=== PATIENT | male | born 1975 | race Caucasian/White ===

== ENCOUNTER 2019-07-14 09:38 | Emergency (ER) | payer SELFPAY ==
--- NOTE | 2019-07-14 10:06 | EDM.PDOC ---
ED HPI GENERAL MEDICAL PROBLEM - General Chief Complaint: Chest Pain Stated Complaint: sob tightness in chest Time Seen by Provider: 07/14/19 09:45 Source of Information: Reports: Patient History Limitations: Reports: No Limitations - History of Present Illness INITIAL COMMENTS - FREE TEXT/NARRATIVE: 43-year-old male who has had left-sided chest discomfort radiating into his shoulder and arm with intermittent palpitations and cough over the past 2 days. He had a very similar episode a year ago. This morning he felt like his heart was beating funny, and he was getting short of breath with activity so came in to be seen. He has now asymptomatic other than an occasional cough and increased pain with deep breath over the left anterior chest. No fevers or chills, no productive cough. He is a smoker. Onset: Gradual Duration: Day(s): (Over the past 2-3 days) Worsens with: Reports: Other (Activity seems to cause more shortness of breath and dizziness) Associated Symptoms: Reports: Chest Pain, Cough, Shortness of Breath, Other ( Dizziness, lightheaded). Denies: Confusion - Related Data Allergies Allergy/AdvReac Type Severity Reaction Status Date / Time No Known Allergies Allergy Verified 07/14/19 09:41 Home Meds: Home Meds NK [No Known Home Meds] 07/14/19 [History] Past Medical History Cardiovascular History: Reports: Other (See Below) Other Cardiovascular History: torn aotra in 2 places Musculoskeletal History: Reports: Fracture - Past Surgical History Other GI Surgeries/Procedures: Ruptruted slpeen and diaphram. Social & Family History - Tobacco Use Smoking Status *Q: Heavy Tobacco Smoker Years of Tobacco use: 30 Packs/Tins Daily: 1 - Caffeine Use Caffeine Use: Reports: Coffee - Recreational Drug Use Recreational Drug Use: Yes Recreational Drug Type: Reports: Marijuana/Hashish ED ROS GENERAL - Review of Systems Review Of Systems: See Below Constitutional: Reports: Malaise. Denies: Fever, Chills HEENT: Denies: Throat Pain Respiratory: Reports: Shortness of Breath, Cough. Denies: Sputum Cardiovascular: Reports: Chest Pain (Left anterior chest discomfort with coughing and deep breath) GI/Abdominal: Reports: Other (Over the past several months has been somewhat concerned about his change in bowel habits and formed stool.) : Reports: No Symptoms Skin: Reports: No Symptoms Neurological: Reports: Dizziness. Denies: Headache Psychiatric: Reports: No Symptoms ED EXAM, GENERAL - Physical Exam Exam: See Below Exam Limited By: No Limitations General Appearance: Alert, No Apparent Distress Eye Exam: Bilateral Eye: Normal Inspection Respiratory/Chest: No Respiratory Distress, Other (Patient does have a few scattered rhonchi and expiratory wheezes bilaterally) Cardiovascular: Regular Rate, Rhythm. No: Extra Beats GI/Abdominal: Soft, Non-Tender Extremities: Normal Inspection Neurological: Alert, Oriented Psychiatric: Normal Affect, Normal Mood Skin Exam: Warm, Dry EKG INTERPRETATION EKG Date: 07/14/19 Rhythm: NSR Rate (Beats/Min): 64 Hunt: Normal Course - Vital Signs Last Recorded V/S: Last Vital Signs Temp 97.1 F 07/14/19 09:43 Pulse 76 07/14/19 09:43 Resp 12 07/14/19 09:43 BP 144/94 H 07/14/19 09:43 Pulse Ox 100 07/14/19 09:43 - Orders/Labs/Meds Orders: Active Orders 24 hr Category Date Time Status EKG Documentation Completion [RC] ASDIRECTED Care 07/14/19 10:16 Active EKG 12 Lead [EK] Routine Ther 07/14/19 10:16 Ordered Labs: Laboratory Tests 07/14/19 07/14/19 Range/Units 10:18 10:18 WBC 10.3 (4.5-11.0) K/uL RBC 4.95 (4.30-5.90) M/uL Hgb 14.8 (12.0-15.0) g/dL Hct 43.7 (40.0-54.0) % MCV 88 (80-98) fL MCH 30 (27-31) pg MCHC 34 (32-36) % Plt Count 388 (150-400) K/uL Neut % (Auto) 52 (36-66) % Lymph % (Auto) 35 (24-44) % [place] % (Auto) 12 H (2-6) % Eos % (Auto) 1 L (2-4) % Baso % (Auto) 0 (0-1) % Troponin I < 0.017 (0.000-0.056) ng/mL - Re-Assessments/Exams Free Text/Narrative Re-Assessment/Exam: 07/14/19 10:20 An EKG was done on arrival which was completely normal. A troponin and CBC were drawn, a chest x-ray was intended but the patient declined as he does not have insurance at this time and wants to keep costs at a minimum. 07/14/19 10:48 CBC is normal except there is slightly elevated monocyte percentage in the differential, troponin is negative. Patient will be discharged with diagnosis of viral bronchitis and pleurisy and an anti-inflammatory for the next few days will be recommended. He can return anytime if worsening. Departure - Departure Time of Disposition: 10:54 Disposition: Home, Self-Care 01 Clinical Impression: Viral URI, Pleurisy - Discharge Information Instructions: Pleurisy, [id number] Referrals: PCP,None [Primary Care Provider] - Forms: ED Department Discharge Care Plan Goals: Ibuprofen or naproxen for the next few days should be helpful, and increase activity as tolerated. Return anytime if worsening or concerns. Sepsis Event Note - Evaluation Sepsis Screening Result: No Definite Risk - Focused Exam Vital Signs: Vital Signs Temp Pulse Resp BP Pulse Ox 07/14/19 09:43 97.1 F 76 12 144/94 H 100 07/14/19 09:42 97.1 F 76 12 144/94 H 100 Date Exam was Performed: 07/14/19 Time Exam was Performed: 10:59 - My Orders Last 24 Hours: My Active Orders 07/14/19 10:16 EKG Documentation Completion [RC] ASDIRECTED EKG 12 Lead [EK] Routine - Assessment/Plan Last 24 Hours: My Active Orders 07/14/19 10:16 EKG Documentation Completion [RC] ASDIRECTED EKG 12 Lead [EK] Routine
== END 2019-07-14 10:54 | disposition home or self-care (01) ==
LOC: JP.ED 09:38
DX: R09.1 Pleurisy (principal); J06.9 Acute upper respiratory infection, unspecified; F17.210 Nicotine dependence, cigarettes, uncomplicated
CPT/HCPCS: 36415; 84484; 85025; 93005; 93010; 99283; 99285-25

== ENCOUNTER 2021-12-30 19:46 | Emergency (ER) | payer MEDICAID | END 2021-12-30 21:18 | disposition home or self-care (01) | LOC: JP.ED 19:46 | DX: K04.7 Periapical abscess without sinus (principal); K02.9 Dental caries, unspecified; F17.210 Nicotine dependence, cigarettes, uncomplicated | CPT/HCPCS: 99282 ==

== ENCOUNTER 2023-08-02 10:57 | Emergency (ER) | payer MEDICAID, OTHER ==
[2023-08-02] MEDS ORDERED: Sodium Chloride 0.9% 10 ML Syringe FLUSH PRN (11:41)
[2023-08-02 11:50] LABS: BASOPHILS ABSOLUTE AUTO 0.05 K/uL (0.00-0.10); BASOPHILS PERCENT AUTO 0.2 % (0.1-1.3); EOSINOPHILS ABSOLUTE AUTO 0.09 K/uL (0.00-0.40); EOSINOPHILS PERCENT AUTO 0.4 % (0.0-5.4); HEMATOCRIT 41.8 % (38.4-49.7); HEMOGLOBIN 14.5 g/dL (12.9-16.9); IMMATURE GRAN ABSOLUTE AUTO 0.08 K/uL (0.00-0.23); IMMATURE GRAN PERCENT AUTO 0.4 % (0.0-0.7); LYMPHOCYTES ABSOLUTE AUTO 3.45 K/uL (0.8-3.3); LYMPHOCYTES PERCENT AUTO 16.7 % (11.4-47.7); MEAN CORPUSCULAR HEMOGLOBIN 30.9 pg (31.6-35.5); MEAN CORPUSCULAR HGB CONC 34.7 g/dL (31.6-35.5); MEAN CORPUSCULAR VOLUME 88.9 fL (81.4-99.0); MONOCYTES ABSOLUTE AUTO 2.68 K/uL (0.20-0.90); NEUTROPHILS ABSOLUTE AUTO 14.32 K/uL (1.0-7.6); NEUTROPHILS PERCENT AUTO 69.3 % (40.0-78.1); PLATELET COUNT,PLT 368 K/uL (130-375); WHITE BLOOD CELL COUNT,WBC 20.7 K/uL (3.2-11.0)
[2023-08-02] MEDS: Sodium Chloride 0.9% 1,000 ML IV ONE (12:00)
[2023-08-02] MEDS: HYDROmorphone 0.5 MG/0.5 ML Syringe IVPUSH ONE (12:00)
[2023-08-02] MEDS: Piperacillin/Tazobactam 3.375 GM in Sodium Chloride 0.9% 50 ML IV SCH (12:04)
[2023-08-02 12:05] LABS: CALCIUM 8.2 mg/dL (8.5-10.1); CREATININE 0.8 mg/dL (0.8-1.3); EST CRCL DRUG DOSING (CG) 111.63 mL/min; POTASSIUM,K 3.6 mmol/L (3.6-5.2)
[2023-08-02 12:06] LABS: ANION GAP 10.6 mmol/L (5.0-14.0)
[2023-08-02 12:13] LABS: LACTIC ACID 0.9 mmol/L (0.4-2.0)
[2023-08-02] MEDS: Sodium Chloride 0.9% 100 ML IV ONE (12:41)
[2023-08-02] MEDS: Iopamidol 612 MG/ML 100 ML Bottle IV ONE (12:41)
[2023-08-02] MEDS: Sodium Chloride 0.9% 10 ML Syringe FLUSH ONE (12:42)
[2023-08-02] MEDS: Acetaminophen 500 MG Tab PO ONE (12:47)
[2023-08-02] MEDS: Ibuprofen 600 MG Tab PO ONE (12:48)
[2023-08-02] MEDS: methylPREDNISolone Sodium Succinate 125 MG/2 ML SDV IVPUSH ONE (14:45)
== END 2023-08-02 15:15 ==
LOC: JP.ED 10:57
DX: K04.6 Periapical abscess with sinus (principal); K02.9 Dental caries, unspecified
CPT/HCPCS: 36415; 70487; 70491; 80048; 83605; 85025; 86140; 87040; 96365; 96375; 99284; A9270; J1170; J2543; J2930; J3490; J7030; Q9967